=== PATIENT | female | born 1985 | race Caucasian/White ===

== ENCOUNTER 2017-01-11 10:15 | Emergency (ER) | payer MEDICARE, MEDICAID ==
--- NOTE | 2017-01-11 10:30 | UC ---
Throat Pain/Nasal Ganesh HPI - HPI Summary HPI Summary: DUPLICATE NOTE - History of Current Complaint Stated Complaint: SORE THROAT Time Seen by Provider: 01/11/17 10:27 - Allergies/Home Medications Allergies/Adverse Reactions: Allergies Allergy/AdvReac Type Severity Reaction Status Date / Time seasonal Allergy Unknown Uncoded 01/11/17 10:54 Reaction Details Home Medications: Home Medications See Pt's Med List From Pcp Office 01/11/17 [History] Review of Systems All Other Systems Reviewed And Are Negative: Yes Physical Exam Triage Information Reviewed: Yes Eye Exam: Normal ENT Exam: Normal Dental Exam: Normal Neck exam: Normal Neck: Positive: 1 Respiratory Exam: Normal Cardiovascular Exam: Normal Abdominal Exam: Normal Musculoskeletal Exam: Normal Neurological Exam: Normal Psychological Exam: Normal Skin Exam: Normal Throat Pain/Nasal Course/Dx - Differential Dx/Diagnosis Provider Diagnoses: SINUSITIS Discharge - Discharge Plan Condition: Stable Disposition: HOME Patient Education Materials: Pharyngitis (ED) Referrals: Catarina Wheat MD [Primary Care Provider] - Additional Instructions: Rapid strep negative. Most viral throat infections pass in 1-2 weeks. If she is still having significant pain by next Saturday, please see her primary care provider for a recheck. You can give 400mg ibuprofen 4 times per day as needed for pain. Children's ibuprofen has 100mg per 5mL of liquid, so you would give her 20mL of liquid. You can ask a pharmacist if you are unsure about the product you are choosing.
[2017-01-11 10:38] VITALS: BP 128/84
--- NOTE | 2017-01-11 11:00 | UC ---
Throat Pain/Nasal Ganesh HPI - HPI Summary HPI Summary: ST starting 3 days ago, is refusing all food and only taking minimal fluids. Has hx of strep infection, with similar behavior. No fever over 100F. - History of Current Complaint Chief Complaint: UCRespiratory Stated Complaint: SORE THROAT Time Seen by Provider: 01/11/17 10:27 Hx Obtained From: Patient, Family/Obiee [employer] Hx Last Menstrual Period: unknown ?: No Onset/Duration: Gradual Onset, Lasting Days Severity: Moderate Cough: None Associated Signs & Symptoms: Negative: Sinus Discomfort, Nasal Discharge, Fever , Vomiting, Rash - Allergies/Home Medications Allergies/Adverse Reactions: Allergies Allergy/AdvReac Type Severity Reaction Status Date / Time seasonal Allergy Unknown Uncoded 01/11/17 10:54 Reaction Details Home Medications: Home Medications See Pt's Med List From Pcp Office 01/11/17 [History] PMH/Surg Hx/FS Hx/Imm Hx GI/ History: Gastroesophageal Reflux Neurological History: Seizures Other Neurological History: [employer] shunt, CP - Surgical History Surgical History: Yes Surgery Procedure, Year, and Place: crainial shunts x2 - Family History Known Family History: Positive: Hypertension - Social History Alcohol Use: None Substance Use Type: None Smoking Status (MU): Never Smoked Tobacco Review of Systems Constitutional: Negative Skin: Negative Eyes: Negative ENT: Sore Throat Respiratory: Negative Cardiovascular: Negative Gastrointestinal: Negative Genitourinary: Negative Motor: Negative Neurovascular: Negative Musculoskeletal: Negative Neurological: Negative Psychological: Negative All Other Systems Reviewed And Are Negative: Yes Physical Exam Triage Information Reviewed: Yes Appearance: Pain Distress - mild, drooling, Thin Vital Signs: Initial Vital Signs Temp 99.2 F 01/11/17 10:27 Pulse 104 01/11/17 10:27 Resp 28 01/11/17 10:27 BP 128/84 01/11/17 10:27 Vital Signs Reviewed: Yes Eye Exam: Normal, Other - PERRL Eyes: Positive: Conjunctiva Clear ENT: Positive: Hearing grossly normal, Tonsillar swelling, Other: - R cerumen impaction Dental Exam: Normal Neck exam: Normal Respiratory Exam: Normal Respiratory: Positive: Normal breath sounds, No accessory muscle use Cardiovascular: Positive: No Murmur Neurological Exam: Other - baseline per caregiver Neurological: Positive: Alert Psychological Exam: Normal Skin Exam: Normal - Additional Comments Medication list reviewed by provider, no changes recommended to normal regimen. Throat Pain/Nasal Course/Dx - Differential Dx/Diagnosis Provider Diagnoses: pharyngitis Discharge - Discharge Plan Condition: Stable Disposition: HOME Patient Education Materials: Pharyngitis (ED) Additional Instructions: Rapid strep negative. Most viral throat infections pass in 1-2 weeks. If she is still having significant pain by next Saturday, please see her primary care provider for a recheck. You can give 400mg ibuprofen 4 times per day as needed for pain. Children's ibuprofen has 100mg per 5mL of liquid, so you would give her 20mL of liquid. You can ask a pharmacist if you are unsure about the product you are choosing.
[2017-01-11] MEDS ORDERED: Ibuprofen PED LIQ* 100 MG/5 ML UDC PO ONE (11:07)
== END 2017-01-11 11:24 | disposition home or self-care (01) ==
LOC: UCCORT 10:15
DX: J02.9 Acute pharyngitis, unspecified (principal); K21.9 Gastro-esophageal reflux disease without esophagitis; R56.9 Unspecified convulsions
CPT/HCPCS: 87651; 99212; G0463

== ENCOUNTER 2017-03-29 11:41 | Emergency (ER) | payer MEDICARE, MEDICAID ==
--- NOTE | 2017-03-29 11:44 | UC ---
Skin Complaint HPI - HPI Summary HPI Summary: 31 YEAR OLD FEMALE PRESENTS WITH COMPLAINS HEAD LICE. - History of Current Complaint Time Seen by Provider: 03/29/17 11:43 Stated Complaint: HEAD LICE CHECK Hx Obtained From: Patient Hx Last Menstrual Period: unknown Onset/Duration: Sudden Onset Skin Exposure Onset/Duration: Days Ago Onset Severity: Moderate Current Severity: Moderate Pain Scale Used: 0-10 Numeric - 5 - Allergy/Home Medications Allergies/Adverse Reactions: Allergies Allergy/AdvReac Type Severity Reaction Status Date / Time seasonal Allergy Unknown Uncoded 03/29/17 11:54 Reaction Details Home Medications: Home Medications levETIRAcetam TAB* [Keppra TAB*] 500 mg PO DAILY 03/29/17 [History Confirmed 12/08] Review of Systems Constitutional: Negative Skin: Other - HEAD LICE Eyes: Negative ENT: Negative Respiratory: Negative Cardiovascular: Negative Gastrointestinal: Negative Genitourinary: Negative Motor: Negative Neurovascular: Negative Musculoskeletal: Negative Neurological: Negative Psychological: Negative All Other Systems Reviewed And Are Negative: Yes PMH/Surg Hx/FS Hx/Imm Hx Previously Healthy: Yes - Surgical History Surgical History: Yes Surgery Procedure, Year, and Place: crainial shunts x2 - Family History Known Family History: Positive: Hypertension - Social History Alcohol Use: None Substance Use Type: None Smoking Status (MU): Never Smoked Tobacco Physical Exam Triage Information Reviewed: Yes Vital Signs Reviewed: Yes Eye Exam: Normal ENT Exam: Normal Dental Exam: Normal Neck exam: Normal Neck: Positive: 1 Respiratory Exam: Normal Cardiovascular Exam: Normal Abdominal Exam: Normal Musculoskeletal Exam: Normal Neurological Exam: Normal Psychological Exam: Normal Skin Exam: Normal Course/Dx - Diagnoses Provider Diagnoses: HAIR LICE Discharge - Discharge Plan Condition: Stable Disposition: HOME Prescriptions: Ivermectin (Pediculicide) [Sklice] 0.5 % EX SEE INSTRUCTIONS #2 lot Patient Education Materials: Pediculosis (ED) Referrals: Catarina Wheat MD [Medical Doctor] -
[2017-03-29 11:54] VITALS: BP 111/71
== END 2017-03-29 12:12 | disposition home or self-care (01) ==
LOC: UCCORT 11:41
DX: B85.0 Pediculosis due to Pediculus humanus capitis (principal)
CPT/HCPCS: 99212; G0463

== ENCOUNTER 2019-05-16 13:20 | Emergency (ER) | payer MEDICAID, MEDICARE ==
--- OUTSIDE RECORDS SUMMARY | 2019-05-16 14:22 | XMS REPORT | Continuity of Care Document ---
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 [phone] Problems Description No Information Available Social History Type Date Description Comments Sex Unknown Allergies, Adverse Reactions, Alerts Active Allergies Reaction Severity Comments Date seasonal 06/13/2018 Medications Active Medications SIG Qnty Indications Ordering Provider Date Albuterol Sulfate 1 four times a 375ml J20.9 Gauss, Shankar 03/09/2019 day as needed (2.5mg/3ML) 0.083% Nebulizer Augmentin 5 ml by mouth 75ml J20.9 Gauss, Shankar 03/03/2019 125-31.25mg/5ML three times a Suspension Rec day Depends Pediatric use as directed, Keli Shankar 07/09/2018 size lg/xlg Phenobarbital 5 ml in Am 6 ml Keli Shankar 20mg/5ML q hs Elixir Acetaminophen 1-2 by mouth Keli, Shankar 500mg Tablets every 6 hours as needed History Medications Xopenex 1 Every 6 HR as 36ml J20.9 Gauss, Shankar 03/03/2019 - 0.31mg/3ML Needed 03/09/2019 Nebulizer Medications Administered in Office Medication SIG Qnty Indications Ordering Provider Date B-12 Injection Shankar Carlson 08/20/2018 Injection B-12 Injection Nurse 08/20/2018 Injection B-12 Injection GaShankar leiva 08/13/2018 Injection B-12 Injection Nurse 08/13/2018 Injection B-12 Injection GaShankar leiva 08/04/2018 Injection B-12 Injection Shankar Carlson 07/30/2018 Injection B-12 Injection Nurse 07/30/2018 Injection B-12 Injection Shankar Carlson 07/23/2018 Injection Immunizations CPT Code Status Date Vaccine Lot # [id number] Given 04/03/2004 Pneumovax Polyvalent Inj Im [id number] U-Td Given 02/19/1997 Td(Adult),Unspecified U-DTaP Given 02/19/1997 DTaP,Unspecified U-HepB Given 10/30/1996 Hepatitis B,Unspecified U-HepB Given 03/17/1996 Hepatitis B,Unspecified 03820 Given 02/18/1996 MMR Virus Immunization U-HepB Given 12/19/1995 Hepatitis B,Unspecified U-Polio Given 03/01/1989 Polio,Unspecified U-DTaP Given 03/01/1989 DTaP,Unspecified 32979 Given 03/10/1988 Poliovirus Vaccine Oral (History Only) 00759 Given 08/14/1987 Poliovirus Vaccine Oral (History Only) 44363 Given 01/11/1986 Hemophilus Influenza B Vacc U-DTaP Given 08/14/1985 DTaP,Unspecified 95558 Given 07/10/1985 MMR Virus Immunization 48842 Given 04/24/1984 Poliovirus Vaccine Oral (History Only) U-DTaP Given Unknown DTaP,Unspecified Vital Signs Date Vital Result Comment 03/19/2019 10:33am BP Systolic 88 mmHg BP Diastolic 62 mmHg Heart Rate 89 /min Weight 58.00 lb O2 % BldC Oximetry 94 % 03/03/2019 11:02am BP Systolic 108 mmHg BP Diastolic 72 mmHg Heart Rate 69 /min Weight 58.50 lb O2 % BldC Oximetry 95 % Results Test Date Facility Test Result H/L Range Note .TSH+Free T4 02/28/2019 [facility] TSH 1.06 mcIU/mL Normal 0.34 -5.60 ([facility] ([facility]) [place] [address] Stim Xxqn) [phone] Free T4 (Free Thyroxine) 0.93 ng/dL Normal 0.61-1.12 Laboratory test 02/28/2019 [facility] Vitamin B12 1183 pg/mL High 180-914 [address] [place], [place] [id number] [phone] Folic Acid (Folate) > 20.00 ng/mL >3.99 Iron & Iron Binding 02/28/2019 [facility] Iron 171 g/dL Normal 50-212 [address] [place] [address] [phone] Unsaturated Iron Binding 61 g/dL Total Iron Binding Capacity 232 g/dL Low 250-450 Transferrin 166 mg/dL Low 203-362 % Iron Saturation 74 % High 15-55 Laboratory test 02/28/2019 [facility] Ferritin 68.4 ng/mL Normal 11-307 finding [address] [place] [address] [phone] Erythropoietin 19.9 mIU/mL Abnormal 2.6 - 18.5 2 CBC Auto 02/28/2019 [facility] White Blood 4.4 10^3/uL Normal 3.5-10.8 Diff [address] [facility] [place] [address] [phone] Red Blood Count 4.59 10^6/uL Normal 3.70-4.87 Hemoglobin 16.4 g/dL High 12.0-16.0 Hematocrit 47 % Normal 35-47 Mean Corpuscular Volume 103 fL High 80-97 Mean Corpuscular Hemoglobin 36 pg High 27-31 Mean Corpuscular HGB Conc 35 g/dL Normal 31-36 Red Cell Distribution Width 13 % Normal 10-15 Platelet Count 350 10^3/uL Normal 150-450 Mean Platelet Volume 7.6 fL Normal 7.4-10.4 Abs Neutrophils 3.0 10^3/uL Normal 1.5-7.7 Abs Lymphocytes 1.1 10^3/uL Normal 1.0-4.8 Abs Monocytes 0.2 10^3/uL Normal 0-0.8 Abs Eosinophils 0.1 10^3/uL Normal 0-0.6 Abs Basophils 0.0 10^3/uL Normal 0-0.2 Abs Nucleated RBC 0.0 10^3/uL Granulocyte % 67.4 % Lymphocyte % 24.7 % Monocyte % 5.0 % Eosinophil % 2.0 % Basophil % 0.9 % Nucleated Red Blood Cells % 0.1 Comp Metabolic 02/28/2019 [facility] Sodium 139 mmol/L Normal 135-145 [address] [place] [address] [phone] Potassium 3.9 mmol/L Normal 3.5-5.0 Chloride 100 mmol/L Low 101-111 Co2 Carbon Dioxide 30 mmol/L Normal 22-32 Anion Gap 9 mmol/L Normal 2-11 Glucose 113 mg/dL High 70-100 Blood Urea Nitrogen 12 mg/dL Normal 6-24 Creatinine 0.41 mg/dL Low 0.51-0.95 BUN/Creatinine Ratio 29.3 High 8-20 Calcium 9.7 mg/dL Normal 8.6-10.3 Total Protein 7.7 g/dL Normal 6.4-8.9 Albumin 4.8 g/dL Normal 3.2-5.2 Globulin 2.9 g/dL Normal 2-4 Albumin/Globulin Ratio 1.7 Normal 1-3 Total Bilirubin 0.60 mg/dL Normal 0.2-1.0 Alkaline Phosphatase 81 U/L Normal 34-104 Alt 15 U/L Normal 7-52 Ast 16 U/L Normal 13-39 Egfr Non- 176.5 >60 Egfr 213.6 >60 3 Laboratory test 02/28/2019 [facility] Phenobarbital 20.6 g/mL Normal 17-34 4 finding [address] [place] [address] [phone] Normal Range 180 to 914 Indeterminate Range 145 to 180 Deficient Range <145 2 Test Performed by: [place] [address] Oncology Coordinator: Abhay Ku M.D. Ph.D.; [facility]# [id number] 3 Because ethnic data is not always readily available, this report includes an eGFR for both -Americans and non- Americans. The National Kidney Disease Education Program (NKDEP) does not endorse the use of the MDRD equation for patients that are not between the ages of 18 and 70, are , have extremes of body size, muscle mass, or nutritional status, or are non- or non-. According to the National Kidney Foundation, irrespective of diagnosis, the stage of the disease is based on the level of kidney function: Stage Description GFR(mL/min/1.73 m(2)) 1 Kidney damage with normal or decreased GFR 90 2 Kidney damage with mild decrease in GFR 60-89 3 Moderate decrease in GFR 30-59 4 Severe decrease in GFR 15-29 5 Kidney failure <15 (or dialysis) 4 Draw prior to AM dose of medication Copy Result to: SHANKAR CARLSON ([id number]) Procedures Description No Information Available Medical Devices Description No Information Available Encounters Type Date Location Provider Dx Diagnosis Office Visit 03/03/2019 11:00a Main Office Shankar Carlson D50.9 Iron deficiency anemia, unspecified 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 Severe intellectual disabilities 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 K44.0 Diaphragmatic hernia with obstruction, without gangrene G91.9 Hydrocephalus, unspecified G40.89 Other seizures D51.3 Other dietary vitamin B12 deficiency anemia G82.50 Quadriplegia, unspecified 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 Profound intellectual disabilities J20.9 Acute bronchitis, unspecified Office Visit 12/11/2018 10:45a Main Office Shankar Carlson 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 Severe intellectual disabilities D50.9 Iron deficiency anemia, unspecified 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89 Other seizures D51.3 Other dietary vitamin B12 deficiency anemia G82.50 Quadriplegia, unspecified D64.9 Anemia, unspecified 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 Assessments Date Code Description Provider 03/03/2019 D50.9 Iron deficiency anemia, unspecified Shankar Carlson 03/03/2019 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 Severe intellectual disabilities Shankar Carlson 03/03/2019 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 Shankar Carlson 03/03/2019 K44.0 Diaphragmatic hernia with obstruction Shankar Carlson 03/03/2019 G91.9 Hydrocephalus, unspecified Shankar Carlson 03/03/2019 G40.89 Other seizures Shankar Carlson 03/03/2019 D51.3 Other dietary vitamin B12 deficiency anemia Gauss, [facility] [place] 03/03/2019 G82.50 Quadriplegia, unspecified Gauss, [facility] [place] 03/03/2019 F73 Profound intellectual disabilities Gauss, [facility] [place] 03/03/2019 J20.9 Acute bronchitis, unspecified Gauss, [facility] [place] 12/11/2018 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 Severe intellectual disabilities Gauss, [facility] [place] 12/11/2018 D50.9 Iron deficiency anemia, unspecified Gauss, [facility] [place] 12/11/2018 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 Gauss, [facility] [place] 12/11/2018 K44.0 Diaphragmatic hernia with obstruction Gauss, [facility] [place] 12/11/2018 G91.9 Hydrocephalus, unspecified Gauss, [facility] [place] 12/11/2018 G40.89 Other seizures Gauss, [facility] [place] 12/11/2018 D51.3 Other dietary vitamin B12 deficiency anemia Gauss, [facility] [place] 12/11/2018 G82.50 Quadriplegia, unspecified Gauss, [facility] [place] 12/11/2018 D64.9 Anemia, unspecified Gauss, [facility] [place] 12/11/2018 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8 Other cerebral palsy Gauss, [facility] [place] 11/25/2018 G40.89 Other seizures Gauss, [facility] [place] 11/25/2018 D51.3 Other dietary vitamin B12 deficiency anemia Gauss, [facility] [place] 11/25/2018 G82.50 Quadriplegia, unspecified Gauss, [facility] [place] 11/25/2018 D64.9 Anemia, unspecified Gauss, [facility] [place] 11/25/2018 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 Shankar Carlson Plan of Treatment Future Appointment(s):05/25/2019 8:00 am - Nurse at Main [id number]/01/2019 10: 30 am - Shankar Carlson at Main Jcjqow8512/11/2018 - Shankar CarlsonF72 Severe intellectual explbxbtchcwZ79.9 Iron deficiency anemia, bzqdlcgfkiaO76.5 Congenital deformity of hztzvS75.0 Diaphragmatic hernia with fxofurytvwhC19.9 Hydrocephalus, neuxsbfadjyU10.89 Other jgowikvbZ79.3 Other dietary vitamin B12 deficiency dyemedQ76.50 Quadriplegia, xivzmaxpbepJ41.9 Anemia, ajqijvubmtcZ26.63 Congenital uvjvtmlgxM53 Profound intellectual disabilities Functional Status Description No Information Available Mental Status Description No Information Available Referrals Refer to Reason for Referral Status Appt Date [facility] [address] [place], [place] [id number] [phone]
--- OUTSIDE RECORDS SUMMARY | 2019-05-16 14:22 | XMS REPORT | Continuity of Care Document ---
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 Problems Description No Information Available Social History Type Date Description Comments Sex Unknown Allergies, Adverse Reactions, Alerts Active Allergies Reaction Severity Comments Date seasonal 06/13/2018 Medications Active Medications SIG Qnty Indications Ordering Provider Date Centrum Multigummies Chew 2 Gummies Shankar Carlson 04/22/2019 Twice Daily Chewtabs Acetaminophen Infants Take 10 MLS By Shankar Carlson 04/22/2019 Mouth as Needed 160mg/5ML Suspension For Pain Or Fever >100.5 Albuterol Sulfate 1 four times a 375ml J20.9 GaShankar leiva 03/09/2019 day as needed (2.5mg/3ML) 0.083% Nebulizer Depends Pediatric use as directed, Shankar Carlson 07/09/2018 size lg/xlg Phenobarbital 5 ml in Am 6 ml Shankar Carlson 20mg/5ML q hs Elixir History Medications Augmentin 5 ml by mouth 75ml J20.9 Gacali Shankar 03/03/2019 - 125-31.25mg/5ML three times a 04/22/2019 Suspension Rec day Xopenex 1 Every 6 HR as 36ml J20.9 Shankar Carlson 03/03/2019 - 0.31mg/3ML Nebulizer Needed 03/09/2019 Medications Administered in Office Medication SIG Qnty Indications Ordering Provider Date B-12 Injection Shankar Carlson 08/20/2018 Injection B-12 Injection Nurse 08/20/2018 Injection B-12 Injection Gauss, Shankar 08/13/2018 Injection B-12 Injection Nurse 08/13/2018 Injection B-12 Injection Gauss, Shankar 08/04/2018 Injection B-12 Injection Gauss, Shankar 07/30/2018 Injection B-12 Injection Nurse 07/30/2018 Injection B-12 Injection Gauss, Shankar 07/23/2018 Injection Immunizations CPT Code Status Date Vaccine Lot # [id number] Given 04/03/2004 Pneumovax Polyvalent Inj Im [id number] U-Td Given 02/19/1997 Td(Adult),Unspecified U-DTaP Given 02/19/1997 DTaP,Unspecified U-HepB Given 10/30/1996 Hepatitis B,Unspecified U-HepB Given 03/17/1996 Hepatitis B,Unspecified 55369 Given 02/18/1996 MMR Virus Immunization U-HepB Given 12/19/1995 Hepatitis B,Unspecified U-Polio Given 03/01/1989 Polio,Unspecified U-DTaP Given 03/01/1989 DTaP,Unspecified 17739 Given 03/10/1988 Poliovirus Vaccine Oral (History Only) 03396 Given 08/14/1987 Poliovirus Vaccine Oral (History Only) 22705 Given 01/11/1986 Hemophilus Influenza B Vacc U-DTaP Given 08/14/1985 DTaP,Unspecified 71123 Given 07/10/1985 MMR Virus Immunization 04138 Given 04/24/1984 Poliovirus Vaccine Oral (History Only) U-DTaP Given Unknown DTaP,Unspecified Vital Signs Date Vital Result Comment 04/22/2019 1:03pm BP Systolic 108 mmHg BP Diastolic 60 mmHg Heart Rate 75 /min Respiratory Rate 26 /min O2 % BldC Oximetry 95 % 03/19/2019 10:33am BP Systolic 88 mmHg BP Diastolic 62 mmHg Heart Rate 89 /min Weight 58.00 lb O2 % BldC Oximetry 94 % Results Test Acquired Date Facility Test Result H/L Range Note .TSH+Free 02/28/2019 [place] [facility] TSH 1.06 mcIU/mL Normal 0.34- 5.60 T4 [address] (Thyroid [place] [address] Stim Horm) [facility] [phone] Free T4 (Free Thyroxine) 0.93 ng/dL Normal 0.61-1.12 Laboratory test 02/28/2019 [facility] Vitamin B12 1183 pg/mL High 180-914 1 finding [address] [place] [address] [phone] Folic Acid (Folate) > 20.00 ng/mL >3.99 Iron & Iron Binding 02/28/2019 [facility] Iron 171 g/dL Normal 50-212 Capacity [facility] [place] [address] [phone] Unsaturated Iron Binding 61 g/dL Total Iron Binding Capacity 232 g/dL Low 250-450 Transferrin 166 mg/dL Low 203-362 % Iron Saturation 74 % High 15-55 Laboratory test 02/28/2019 [facility] Ferritin 68.4 ng/mL Normal 11-307 finding [facility] [place] [address] [phone] Erythropoietin 19.9 mIU/mL Abnormal 2.6 - 18.5 2 CBC Auto 02/28/2019 [facility] White Blood 4.4 10^3/uL Normal 3.5-10.8 Diff [address] [facility] [address] [phone] Red Blood Count 4.59 10^6/uL Normal 3.70-4.87 [...] Blood Cells % 0.1 Comp Metabolic 02/28/2019 [facility] Sodium 139 mmol/L Normal 135-145 Panel [address] [place] [address] [phone] Potassium 3.9 mmol/L Normal 3.5-5.0 Chloride 100 [...] Egfr 213.6 >60 3 Laboratory test 02/28/2019 [facility] Phenobarbital 20.6 g/mL Normal 17-34 4 finding [address] [place] [address] [phone] Normal Range 180 to 914 Indeterminate Range 145 to 180 Deficient Range <145 2 Test Performed by: [place] [address] Line Operator: Abhay Ku M.D. Ph.D.; IA# [id number] 3 Because ethnic data is not always [...] of medication Copy Result to: SHANKAR CARLSON ([id number]) Procedures Description No Information Available Medical Devices Description No Information Available Encounters Type Date Location Provider Dx Diagnosis Office Visit 03/19/2019 10:15a Main Office Shankar Carlson J44.9 Chronic obstructive pulmonary disease, unspecified Z01.810 Encounter for preprocedural cardiovascular examination E11.9 Type 2 diabetes mellitus without complications D50.9 Iron deficiency anemia, unspecified I73.9 Peripheral vascular disease, unspecified F72 Severe intellectual disabilities I48.0 Paroxysmal atrial fibrillation 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 03/19/2019 Z01.810 Encounter for preprocedural cardiovascular examination [facility] 03/19/2019 E11.9 Type 2 diabetes mellitus without complications [facility], [facility] 03/19/2019 D50.9 Iron deficiency anemia, unspecified [facility], [facility] 03/19/2019 I73.9 Peripheral vascular disease, 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 03/19/2019 G91.9 Hydrocephalus, unspecified [facility], [facility] 03/19/2019 D51.3 Other dietary vitamin B12 deficiency anemia [facility] 03/19/2019 G82.50 Quadriplegia, unspecified [facility], 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 03/03/2019 F72 Severe intellectual disabilities [facility], 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 03/03/2019 K44.0 Diaphragmatic hernia with obstruction [facility], [facility] 03/03/2019 G91.9 Hydrocephalus, unspecified [facility], [facility] 03/03/2019 G40.89 Other seizures [facility], [facility] 03/03/2019 D51.3 Other dietary vitamin B12 deficiency anemia [facility] 03/03/2019 G82.50 Quadriplegia, unspecified [facility], [facility] 03/03/2019 F73 Profound intellectual disabilities [facility], [facility] 03/03/2019 J20.9 Acute bronchitis, unspecified [facility], [facility] 12/11/2018 F72 Severe intellectual disabilities [facility], [facility] 12/11/2018 D50.9 Iron deficiency anemia, unspecified [facility], 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 12/11/2018 K44.0 Diaphragmatic hernia with obstruction [facility], [facility] 12/11/2018 G91.9 Hydrocephalus, unspecified [facility], [facility] 12/11/2018 G40.89 Other seizures Gauss, [facility] 12/11/2018 D51.3 Other dietary vitamin B12 deficiency anemia Gauss, [facility] 12/11/2018 G82.50 Quadriplegia, unspecified [facility], [facility] 12/11/2018 D64.9 Anemia, unspecified [facility], 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 11/25/2018 F72 Severe intellectual disabilities [facility], [facility] 11/25/2018 D50.9 Iron deficiency anemia, unspecified [facility], 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 11/25/2018 K44.0 Diaphragmatic hernia with obstruction [facility], [facility] 11/25/2018 G91.9 Hydrocephalus, unspecified [facility], [facility] 11/25/2018 G80.8 Other cerebral palsy [facility], [facility] 11/25/2018 G40.89 Other seizures [facility], [facility] 11/25/2018 D51.3 Other dietary vitamin B12 deficiency anemia [facility], [facility] 11/25/2018 G82.50 Quadriplegia, unspecified [facility], [facility] 11/25/2018 D64.9 Anemia, unspecified [facility], 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 Shankar Carlson Plan of Treatment Future Appointment(s):05/25/2019 8:00 am - Nurse at Main Tdocqs3206/01/2019 10: 30 am - Shankar Carlson at Main Fzeiey2712/11/2018 - [facility] leivaF72 Severe intellectual fmkzyhpuzhepN83.9 Iron deficiency anemia, encxyiwcujsI23.5 Congenital deformity of nunaqA40.0 Diaphragmatic hernia with stwyqksrxjuD08.9 Hydrocephalus, tvebtwutheoT74.89 Other ohwvgfgvO38.3 Other dietary vitamin B12 deficiency yhkgtcK46.50 Quadriplegia, bongnaraowqZ65.9 Anemia, bcxjjpjlibvS30.63 Congenital hyzffjxceY07 Profound intellectual disabilities Functional Status Description No Information Available Mental Status Description No Information Available Referrals Refer to Dr Reason for Referral Status Appt Date [facility] [address] [place] [address] [phone]
--- OUTSIDE RECORDS SUMMARY | 2019-05-16 14:22 | XMS REPORT | Continuity of Care Document ---
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 [phone] Problems Description No Information Available Social History [...] Injection GaShankar leiva 08/04/2018 Injection B-12 Injection [facility] leival 07/30/2018 Injection B-12 Injection Nurse 07/30/2018 Injection B-12 Injection Shankar Carlson 07/23/2018 Injection Immunizations CPT Code Status Date Vaccine Lot # [id number] Given 04/03/2004 Pneumovax Polyvalent Inj Im [id number] U-Td Given 02/19/1997 Td(Adult),Unspecified U-DTaP Given 02/19/1997 DTaP,Unspecified U-HepB Given 10/30/1996 Hepatitis B,Unspecified U-HepB Given 03/17/1996 Hepatitis B,Unspecified 56584 Given 02/18/1996 MMR Virus Immunization U-HepB Given 12/19/1995 Hepatitis B,Unspecified U-Polio Given 03/01/1989 Polio,Unspecified U-DTaP Given 03/01/1989 DTaP,Unspecified 23464 Given 03/10/1988 Poliovirus Vaccine Oral (History Only) 00174 Given 08/14/1987 Poliovirus Vaccine Oral (History Only) 39278 Given 01/11/1986 Hemophilus Influenza B Vacc U-DTaP Given 08/14/1985 DTaP,Unspecified 76346 Given 07/10/1985 MMR Virus Immunization 39121 Given 04/24/1984 Poliovirus Vaccine Oral (History Only) [...] Result H/L Range Note .TSH+Free T4 02/28/2019 [facility] TSH 1.06 mcIU/mL Normal 0.34 -5.60 ([place] & [facility] (Thyroid [facility]) [place] [address] Stim Nuwj) [phone] Free T4 (Free Thyroxine) 0.93 ng/dL Normal 0.61-1.12 Laboratory test 02/28/2019 [facility] Vitamin B12 1183 pg/mL High 180-914 [address] [place], [place] [address] [phone] Folic Acid (Folate) > 20.00 ng/mL >3.99 Iron & Iron Binding 02/28/2019 [facility] Iron 171 g/dL Normal 50-212 Capacity [address] [place] [address] [phone] Unsaturated Iron Binding 61 g/dL Total Iron Binding Capacity 232 g/dL Low 250-450 Transferrin 166 mg/dL Low 203-362 % Iron Saturation 74 % High 15-55 Laboratory test 02/28/2019 [facility] Ferritin 68.4 ng/mL Normal 11-307 finding [address] [place] [address] [phone] Erythropoietin 19.9 mIU/mL Abnormal 2.6 - 18.5 2 CBC Auto 02/28/2019 [facility] White Blood 4.4 10^3/uL Normal 3.5-10.8 Diff [address] [facility] [place] [address] [phone] Red Blood Count 4.59 10^6/uL Normal 3.70-4.87 [...] Blood Cells % 0.1 Comp Metabolic 02/28/2019 [facility] Sodium 139 mmol/L Normal 135-145 Panel [address] [place] [address] [phone] Potassium 3.9 mmol/L Normal 3.5-5.0 Chloride 100 [...] Egfr 213.6 >60 3 Laboratory test 02/28/2019 [facility] Phenobarbital 20.6 g/mL Normal 17-34 4 finding [address] [place] [address] [phone] Normal Range 180 to 914 Indeterminate Range 145 to 180 Deficient Range <145 2 Test Performed by: [place] [address] Ship Loader: Abhay Ku M.D. Ph.D.; [facility]# [id number] 3 Because ethnic data is not always [...] of medication Copy Result to: SHANKAR CARLSON ([id number]) Procedures Description No Information Available Medical Devices Description No Information Available Encounters Type Date Location Provider Dx Diagnosis Office Visit 03/19/2019 Main Office Shankar Carlson Z01.810 Encounter for 10:15a preprocedural cardiovascular examination D50.9 Iron deficiency anemia, unspecified F72 Severe [...] blindness Assessments Date Code Description Provider 03/19/2019 [place]01.810 Encounter for preprocedural cardiovascular examination Gauss, [facility] 03/19/2019 D50.9 Iron deficiency anemia, unspecified [facility], [facility] 03/19/2019 F72 Severe intellectual disabilities Gauss, [facility] 03/19/2019 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 Gauss, [facility] 03/19/2019 K44.0 Diaphragmatic hernia with obstruction [facility], [facility] 03/19/2019 G91.9 Hydrocephalus, unspecified Gauss, [facility] 03/19/2019 D51.3 Other dietary vitamin B12 deficiency anemia Gauss, [facility] 03/19/2019 G82.50 Quadriplegia, unspecified [facility], [facility] 03/19/2019 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 Profound intellectual disabilities Gauss, [facility] 03/19/2019 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 Gauss, [facility] 03/03/2019 D50.9 Iron deficiency anemia, unspecified Gauss, [facility] 03/03/2019 F72 Severe intellectual disabilities Gauss, [facility] 03/03/2019 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 Gauss, [facility] 03/03/2019 K44.0 Diaphragmatic hernia with obstruction Gauss, [facility] 03/03/2019 G91.9 Hydrocephalus, unspecified Gauss, [facility] 03/03/2019 G40.89 Other seizures Gauss, [facility] 03/03/2019 D51.3 Other dietary vitamin B12 deficiency anemia Gauss, [facility] 03/03/2019 G82.50 Quadriplegia, unspecified Gauss, [facility] 03/03/2019 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 Profound intellectual disabilities Gauss, [facility] 03/03/2019 J20.9 Acute bronchitis, unspecified Gauss, [facility] 12/11/2018 F72 Severe intellectual disabilities Gauss, [facility] 12/11/2018 D50.9 Iron deficiency anemia, unspecified Gauss, [facility] 12/11/2018 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 Gauss, [facility] 12/11/2018 K44.0 Diaphragmatic hernia with obstruction [facility], [facility] 12/11/2018 G91.9 Hydrocephalus, unspecified [facility], [facility] 12/11/2018 G40.89 Other seizures Gauss, [facility] 12/11/2018 D51.3 Other dietary vitamin B12 deficiency anemia Gauss, [facility] 12/11/2018 G82.50 Quadriplegia, unspecified Gauss, Shankar 12/11/2018 D64.9 Anemia, unspecified [facility], [facility] 12/11/2018 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 Gauss, [facility] 12/11/2018 F73 Profound intellectual disabilities Gauss, [facility] 11/25/2018 F72 Severe intellectual disabilities Gauss, [facility] 11/25/2018 D50.9 Iron deficiency anemia, unspecified [facility], [facility] 11/25/2018 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 Gauss, [facility] 11/25/2018 K44.0 Diaphragmatic hernia with obstruction [facility], [facility] 11/25/2018 G91.9 Hydrocephalus, unspecified [facility], [facility] 11/25/2018 G80.8 Other cerebral palsy [facility], [facility] 11/25/2018 G40.89 Other seizures [facility], [facility] 11/25/2018 D51.3 Other dietary vitamin B12 deficiency anemia [facility], [facility] 11/25/2018 G82.50 Quadriplegia, unspecified [facility], [facility] 11/25/2018 D64.9 Anemia, unspecified [facility], [facility] 11/25/2018 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 Shankar Carlson Plan of Treatment Future Appointment(s):05/25/2019 8:00 am - Nurse at Main Fsyulo8806/01/2019 10: 30 am - Shankar Carlson at Main Kcvrzs8803/19/2019 - Shankar CarlsonZ01.810 Encounter for preprocedural cardiovascular bjzgztjlxvsN95.9 Iron deficiency anemia, ijeqfsjvjdrE91 Severe intellectual krvjartoygqmD43.5 Congenital deformity of eszumB98.0 Diaphragmatic hernia with btppwuyayexR10.9 Hydrocephalus, lvnskojsyavP57.3 Other dietary vitamin B12 deficiency yfxazcK76.50 Quadriplegia , lqrfxyqzqwzC66 Profound intellectual hxfdbnxwfqfoA47.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 Functional Status Description No Information Available Mental Status Description No Information Available Referrals Refer to Reason for Referral Status Appt Date [facility] [address] [place] [address] [phone]
--- OUTSIDE RECORDS SUMMARY | 2019-05-16 14:22 | XMS REPORT | Continuity of Care Document ---
:1985 External Reference #:[id number] Author Name Shankar Carlson (transmitted by agent of provider Jasmyne Crowley) Address [address] [place] [address] Care Team Providers Name Role Phone Shankar Carlson MD - Internal Medicine Care Team Information Nurse Ldr Problems Description No Information Available Social History [...] CPT Code Status Date Vaccine Lot # [id number] Given 04/03/2004 Pneumovax Polyvalent Inj Im [id number] U-Td Given 02/19/1997 Td(Adult),Unspecified U-DTaP Given 02/19/1997 DTaP,Unspecified U-HepB Given 10/30/1996 Hepatitis B,Unspecified U-HepB Given 03/17/1996 Hepatitis B,Unspecified 72059 Given 02/18/1996 MMR Virus Immunization U-HepB Given 12/19/1995 Hepatitis B,Unspecified U-Polio Given 03/01/1989 Polio,Unspecified U-DTaP Given 03/01/1989 DTaP,Unspecified 61151 Given 03/10/1988 Poliovirus Vaccine Oral (History Only) 48280 Given 08/14/1987 Poliovirus Vaccine Oral (History Only) 17829 Given 01/11/1986 Hemophilus Influenza B Vacc U-DTaP Given 08/14/1985 DTaP,Unspecified 31685 Given 07/10/1985 MMR Virus Immunization 09931 Given 04/24/1984 Poliovirus Vaccine Oral (History Only) [...] Result H/L Range Note .TSH+Free T4 02/28/2019 [facility] TSH 1.06 mcIU/mL Normal 0.34 -5.60 ([facility] (Thyroid [facility]) [place] [address] Stim [facility]) [phone] Free T4 (Free Thyroxine) 0.93 ng/dL Normal 0.61-1.12 Laboratory test 02/28/2019 [facility] Vitamin B12 1183 pg/mL High 180-914 [address] [place], [place] [id number] [phone] Folic Acid (Folate) > 20.00 ng/mL >3.99 Iron & Iron Binding 02/28/2019 [facility] Iron 171 g/dL Normal 50-212 Capacity [address] [place] [address] [phone] Unsaturated Iron Binding 61 g/dL Total Iron Binding Capacity 232 g/dL Low 250-450 Transferrin 166 mg/dL Low 203-362 % Iron Saturation 74 % High 15-55 Laboratory test 02/28/2019 [facility] Ferritin 68.4 ng/mL Normal 11-307 finding [address] [place] [address] [phone] Erythropoietin 19.9 mIU/mL Abnormal 2.6 - 18.5 2 CBC Auto 02/28/2019 [facility] White Blood 4.4 10^3/uL Normal 3.5-10.8 Diff [address] [facility] [place] [address] [phone] Red Blood Count 4.59 10^6/uL Normal 3.70-4.87 [...] Blood Cells % 0.1 Comp Metabolic 02/28/2019 [facility] Sodium 139 mmol/L Normal 135-145 Panel [address] [place] [address] [phone] Potassium 3.9 mmol/L Normal 3.5-5.0 Chloride 100 [...] Egfr 213.6 >60 3 Laboratory test 02/28/2019 [facility] Phenobarbital 20.6 g/mL Normal 17-34 4 finding [address] [place] [address] [phone] Normal Range 180 to 914 Indeterminate Range 145 to 180 Deficient Range <145 2 Test Performed by: [place] [address] Geological Science Teacher: Abhay Ku M.D. 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 [facility], [facility] 03/19/2019 K44.0 Diaphragmatic hernia with obstruction [facility], [facility] 03/19/2019 G91.9 Hydrocephalus, unspecified Gauss, [facility] 03/19/2019 D51.3 Other dietary vitamin B12 deficiency anemia [facility], [facility] 03/19/2019 G82.50 Quadriplegia, unspecified [facility], [facility] 03/19/2019 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 Profound intellectual disabilities [facility], [facility] 03/19/2019 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 [facility], [facility] 03/03/2019 D50.9 Iron deficiency anemia, unspecified Gauss, [facility] 03/03/2019 F72 Severe intellectual disabilities Gauss, [facility] 03/03/2019 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 Gauss, [facility] 03/03/2019 K44.0 Diaphragmatic hernia with obstruction [facility], [facility] 03/03/2019 G91.9 Hydrocephalus, unspecified Gauss, [facility] 03/03/2019 G40.89 Other seizures Gauss, [facility] 03/03/2019 D51.3 Other dietary vitamin B12 deficiency anemia [facility], [facility] 03/03/2019 G82.50 Quadriplegia, unspecified Gauss, [facility] 03/03/2019 F73 Profound intellectual disabilities Gauss, [facility] 03/03/2019 J20.9 Acute bronchitis, unspecified Gauss, [facility] 12/11/2018 F72 Severe intellectual disabilities Gauss, [facility] 12/11/2018 D50.9 Iron deficiency anemia, unspecified Gauss, [facility] 12/11/2018 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 Gauss, [facility] 12/11/2018 K44.0 Diaphragmatic hernia with obstruction Gauss, [facility] 12/11/2018 G91.9 Hydrocephalus, unspecified Gauss, [facility] 12/11/2018 G40.89 Other seizures Gauss, [facility] 12/11/2018 D51.3 Other dietary vitamin B12 deficiency anemia Gauss, [facility] 12/11/2018 G82.50 Quadriplegia, unspecified Gauss, Shankar 12/11/2018 D64.9 Anemia, unspecified Gauss, [facility] 12/11/2018 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 Gacali, [facility] 12/11/2018 F73 Profound intellectual disabilities Gauss, [facility] 11/25/2018 F72 Severe intellectual disabilities Gauss, [facility] 11/25/2018 D50.9 Iron deficiency anemia, unspecified Gauss, Shankar 11/25/2018 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 Gauss, [facility] 11/25/2018 K44.0 Diaphragmatic hernia with obstruction [facility], [facility] 11/25/2018 G91.9 Hydrocephalus, unspecified Gauss, [facility] 11/25/2018 G80.8 Other cerebral palsy Rafaeluss, [facility] 11/25/2018 G40.89 Other seizures Rafaeluss, [facility] 11/25/2018 D51.3 Other dietary vitamin B12 deficiency anemia Keli, [facility] 11/25/2018 G82.50 Quadriplegia, unspecified [facility], [facility] 11/25/2018 D64.9 Anemia, unspecified [facility], [facility] 11/25/2018 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 Shankar Carlson Plan of Treatment Future Appointment(s):05/25/2019 8:00 am - Nurse at Main Gzrvbu1806/01/2019 10: 30 am - Shankar Carlson at Main Jjcwhi8012/11/2018 - Power CarlsonF72 Severe intellectual wbtdnwbbzvfqF39.9 Iron deficiency anemia, azgalyovnfgK96.5 Congenital deformity of vwvodR87.0 Diaphragmatic hernia with uqkghsinhhhP18.9 Hydrocephalus, xahljyhxdmrD06.89 Other inarqkinZ17.3 Other dietary vitamin B12 deficiency bccfntY46.50 Quadriplegia, fdjzpggvdfgG86.9 Anemia, scdlpsmwhcfQ25.63 Congenital bvwabbibvC51 Profound intellectual disabilities Functional Status Description No Information Available Mental Status Description No Information Available Referrals Refer to Reason for Referral Status Appt Date [facility] [address] [place] [address] [phone]
--- OUTSIDE RECORDS SUMMARY | 2019-05-16 14:22 | XMS REPORT | Continuity of Care Document ---
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 Problems Description No Information Available Social History [...] Augmentin 5 ml by mouth 75ml J20.9 GaShankar leiva 03/03/2019 - 125-31.25mg/5ML three times a 04/22/2019 [...] CPT Code Status Date Vaccine Lot # [id number] Given 04/03/2004 Pneumovax Polyvalent Inj Im [id number] U-Td Given 02/19/1997 Td(Adult),Unspecified U-DTaP Given 02/19/1997 DTaP,Unspecified U-HepB Given 10/30/1996 Hepatitis B,Unspecified U-HepB Given 03/17/1996 Hepatitis B,Unspecified 42534 Given 02/18/1996 MMR Virus Immunization U-HepB Given 12/19/1995 Hepatitis B,Unspecified U-Polio Given 03/01/1989 Polio,Unspecified U-DTaP Given 03/01/1989 DTaP,Unspecified 20309 Given 03/10/1988 Poliovirus Vaccine Oral (History Only) 10569 Given 08/14/1987 Poliovirus Vaccine Oral (History Only) 51530 Given 01/11/1986 Hemophilus Influenza B Vacc U-DTaP Given 08/14/1985 DTaP,Unspecified 87030 Given 07/10/1985 MMR Virus Immunization 07095 Given 04/24/1984 Poliovirus Vaccine Oral (History Only) [...] Test Result H/L Range Note .TSH+Free 02/28/2019 [facility] TSH 1.06 mcIU/mL Normal 0.34- 5.60 T4 [address] (Thyroid [place] [address] [place]) [facility] [place] [phone] Free T4 (Free Thyroxine) 0.93 ng/dL Normal 0.61-1.12 Laboratory test 02/28/2019 [facility] B12 1183 pg/mL High 180-914 1 finding [address] [place] [address] [phone] Folic Acid (Folate) > 20.00 ng/mL >3.99 Iron & Iron Binding 02/28/2019 [facility] Iron 171 g/dL Normal 50-212 Capacity [facility] [place] [address] [phone] Unsaturated Iron Binding 61 g/dL Total Iron Binding Capacity 232 g/dL Low 250-450 Transferrin 166 mg/dL Low 203-362 % Iron Saturation 74 % High 15-55 Laboratory test 02/28/2019 [facility] Ferritin 68.4 ng/mL Normal 11-307 finding [facility] [place] [address] [phone] Erythropoietin 19.9 mIU/mL Abnormal 2.6 - 18.5 2 CBC Auto 02/28/2019 [facility] White Blood 4.4 10^3/uL Normal 3.5-10.8 Diff 1129 [employer] [facility] [place] [address] [phone] Red Blood Count 4.59 10^6/uL Normal 3.70-4.87 [...] Blood Cells % 0.1 Comp Metabolic 02/28/2019 [facility] Sodium 139 mmol/L Normal 135-145 Panel [address] [place] [address] [phone] Potassium 3.9 mmol/L Normal 3.5-5.0 Chloride 100 [...] Egfr 213.6 >60 3 Laboratory test 02/28/2019 [facility] Phenobarbital 20.6 g/mL Normal 17-34 4 finding [address] [place] [address] [phone] 1 Normal Range 180 to 914 Indeterminate Range 145 to 180 Deficient Range <145 2 Test Performed by: [place] [address] Street Roller Engineer: Abhay Ku M.D. Ph.D.; [place]# [id number] 3 Because ethnic data is not always [...] of medication Copy Result to: SHANKAR CARLSON ([id number]) Procedures Description No Information Available Medical Devices [...] 03/19/2019 J44.9 Chronic obstructive pulmonary disease, [facility] 03/19/2019 Z01.810 Encounter for preprocedural cardiovascular examination [facility] 03/19/2019 E11.9 Type 2 diabetes mellitus without complications [facility], [facility] 03/19/2019 D50.9 Iron deficiency anemia, unspecified [facility], [facility] 03/19/2019 I73.9 Peripheral vascular disease, [facility] 03/19/2019 F[address] [facility] 03/19/2019 I48.[address] 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 03/19/2019 K44.0 Diaphragmatic hernia with obstruction [facility], [facility] 03/19/2019 G91.9 Hydrocephalus, unspecified Gauss, [facility] 03/19/2019 D51.3 Other dietary vitamin B12 deficiency anemia [facility] 03/19/2019 G82.50 Quadriplegia, unspecified Gauss, [facility] 03/19/2019 F73 Profound intellectual disabilities [facility] 03/19/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 Gauss, [facility] 12/11/2018 K44.0 Diaphragmatic hernia with obstruction [facility], [facility] 12/11/2018 G91.9 Hydrocephalus, unspecified Gauss, [facility] 12/11/2018 G40.89 Other seizures [facility], [facility] 12/11/2018 D51.3 Other dietary vitamin B12 deficiency anemia Gauss, [facility] 12/11/2018 G82.50 Quadriplegia, unspecified Gauss, [facility] 12/11/2018 D64.9 Anemia, unspecified Gauss, [facility] 12/11/2018 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 Wiuss, [facility] 12/11/2018 F73 Profound intellectual disabilities [facility], [facility] 11/25/2018 F72 Severe intellectual disabilities Gauss, [facility] 11/25/2018 D50.9 Iron deficiency anemia, unspecified Gauss, [facility] 11/25/2018 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 Gauss, [facility] 11/25/2018 K44.0 Diaphragmatic hernia with obstruction [facility], [facility] 11/25/2018 G91.9 Hydrocephalus, unspecified Gauss, [facility] 11/25/2018 G80.8 Other cerebral palsy Gauss, [facility] 11/25/2018 G40.89 Other seizures [facility], [facility] 11/25/2018 D51.3 Other dietary vitamin B12 deficiency anemia [facility], [facility] 11/25/2018 G82.50 Quadriplegia, unspecified [facility], [facility] 11/25/2018 D64.9 Anemia, unspecified Gauss, [facility] 11/25/2018 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 Shankar Carlson Plan of Treatment Future Appointment(s):05/25/2019 8:00 am - Nurse at Main Fmrvul4606/01/2019 10: 30 am - Shankar Carlson at Main Julaat9212/11/2018 - RafaelPower leivaF72 Severe intellectual cjqrxpvzxuuzM42.9 Iron deficiency anemia, icrufeooexhC96.5 Congenital deformity of lnjliA01.0 Diaphragmatic hernia with ntmjqesavlrE37.9 Hydrocephalus, ivojuvmoiovM85.89 Other rhbdystrD26.3 Other dietary vitamin B12 deficiency ijqsftR47.50 Quadriplegia, psbbeiinaknY89.9 Anemia, bwjxmcdzahaR96.63 Congenital vwkiogyhiF25 Profound intellectual disabilities Functional Status Description No Information Available Mental Status Description No Information Available Referrals Refer to Dr Reason for Referral Status Appt Date [facility] [address] [place] [address] [phone]
[2019-05-16 14:37] VITALS: BP 125/86
--- NOTE | 2019-05-16 15:10 | UC ---
General HPI - HPI Summary HPI Summary: Pt is accompanied by residential caregiver. Pt states that she has cough, body aches and abdominal pain that began today. 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 Pt does not appear to be in acute distress at time of exam. Pt is may not be reliable historian. I have spoken with pt's aunt and guardian and with residential caregiver. Aunt reports that she is most concerned with pt's nasal cognestion and would like a nasal spray instead of PO medicine to help relieve this symptom - History of Current Complaint Chief Complaint: UCRespiratory Stated Complaint: CONGESTION,FEVER,RT EAR PAIN Time Seen by Provider: 05/16/19 14:43 Hx Obtained From: Patient, Family/Hanger Hx Last Menstrual Period: unknown Onset/Duration: Sudden Onset, Still Present Timing: Constant Onset Severity: Mild Current Severity: Moderate Pain Intensity: 7 Associated Signs & Symptoms: Positive: Cough - Allergy/Home Medications Allergies/Adverse Reactions: Allergies Allergy/AdvReac Type Severity Reaction Status Date / Time seasonal Allergy Unknown Uncoded 05/16/19 14:31 Reaction Details Home Medications: Home Medications Acetaminophen PED LIQ* [Tylenol PED LIQ UDC*] 320 mg PO Q6H PRN 05/16/19 [ History Confirmed 05/16/19] Albuterol 2.5MG/3ML (0.083%)* [Ventolin 2.5 MG/3 ML NEB.ANTONELLA*] 2.5 mg INH Q6H PRN 05/16/19 [History Confirmed 05/16/19] Bacitracin OINTMENT* 1 applic TOPICAL TID PRN 05/16/19 [History Confirmed ] Multivit-Minerals/Folic Acid [Centrum Multigummies] 2 each PO BID 05/16/19 [ History Confirmed 05/16/19] PHENobarbitaL [Phenobarbital] 100 mg PO 0800 05/16/19 [History Confirmed ] PHENobarbitaL [Phenobarbital] 120 mg PO 1900 05/16/19 [History Confirmed ] Phenylephrine HCl [Nasal Tyrone] 1 spray BOTH NARES QID PRN 05/16/19 [History Confirmed 05/16/19] PMH/Surg Hx/FS Hx/Imm Hx - Additional Past Medical History Additional PMH: Pt wears brace for truncal support. is wheel chair dependent, incontinent of urine and stool, and lives in residential Previously Healthy: Yes - Surgical History Surgical History: Yes Surgery Procedure, Year, and Place: crainial shunts x2 - Family History Known Family History: Positive: Hypertension - Social History Occupation: Disabled Lives: Snf Alcohol Use: None Substance Use Type: None Smoking Status (MU): Never Smoked Tobacco Have You Smoked in the Last Year: No - Immunization History Most Recent Influenza Vaccination: no Vaccination Up to Date: Yes Review of Systems All Other Systems Reviewed And Are Negative: Yes Constitutional: Positive: Negative Skin: Positive: Rash - on trunk, related to brace, per aunt. ENT: Positive: Negative Respiratory: Positive: Cough Cardiovascular: Positive: Negative Gastrointestinal: Positive: Abdominal Pain Genitourinary: Positive: Negative Motor: Positive: Negative Neurovascular: Positive: Negative Musculoskeletal: Positive: Myalgia - pt states "my body hurts" Neurological: Positive: Negative Psychological: Positive: Negative Is Patient Immunocompromised?: No Physical Exam Triage Information Reviewed: Yes Appearance: Ill-Appearing Vital Signs: Initial Vital Signs Temp 98.2 F 05/16/19 14:32 Pulse 112 05/16/19 14:32 Resp 20 05/16/19 14:32 BP 125/86 05/16/19 14:32 Pulse Ox 100 05/16/19 14:32 Vital Signs Reviewed: Yes Eye Exam: Normal Eyes: Positive: Other: - scleritis ENT: Positive: Nasal congestion Respiratory: Positive: Normal breath sounds, No respiratory distress Cardiovascular: Positive: Tachycardia Abdomen Description: Positive: Other: - verbal c/o pain at RLQ and umbilicus. If pt is not prompted abotu pain, pt does not respond with painful reaction to abdominal exam Musculoskeletal Exam: Other - at baseline, uses wheelchair Neurological Exam: Other - at baseline Psychological Exam: Normal Skin: Positive: Rashes - scattered, flat erythematous areas on trunk Course/Dx - Differential Dx - Multi-Symptom Differential Diagnoses: Other - viral syndrome - Diagnoses Provider Diagnosis: Nasal congestion, Abdominal pain Discharge ED - Sign-Out/Discharge Documenting (check all that apply): Patient Departure All imaging exams completed and their final reports reviewed: No Studies - Discharge Plan Condition: Stable Disposition: HOME Prescriptions: Oxymetazoline 0.05% NASAL SPR* [Afrin 0.05% NASAL SPRAY*] 1 spray NASAL Q12H #1 btl Patient Education Materials: Viral Syndrome (ED), Acute Abdominal Pain (ED) Referrals: Shankar Dickey MD [Primary Care Provider] - If Needed Additional Instructions: Please follow up with your PCP as need. If your symptoms do not improve please seek care at the closes emergency room as soon as possible. - Billing Disposition and Condition Condition: STABLE Disposition: Home
[2019-05-16 15:25] LABS: Influenza A Molecular NEGATIVE (Negative); Influenza B Molecular NEGATIVE (Negative)
== END 2019-05-16 15:36 | disposition home or self-care (01) ==
LOC: UCCORT 13:20
DX: R09.81 Nasal congestion (principal); R10.9 Unspecified abdominal pain; M79.10 Myalgia, unspecified site; R05 Cough; R21 Rash and other nonspecific skin eruption; H15.099 Other scleritis, unspecified eye; R00.0 Tachycardia, unspecified; Z91.09 Other allergy status, other than to drugs and biological substances; Z99.3 Dependence on wheelchair
CPT/HCPCS: 99212; G0463

== ENCOUNTER 2023-06-13 13:14 | Observation (INO) ==
[2023-06-13] MEDS ORDERED: Albuterol 2.5mg/3 ml (0.083%) NEB.SOLN INH ONE ×2 (14:04→16:03)
[2023-06-13] MEDS ORDERED: Dexamethasone IV 4 MG/ML VIAL 1 ml VIAL IV SLOW PU ONE (14:05)
[2023-06-13 14:22] LABS: Hematocrit 43.9 % (35-45); Hemoglobin 14.9 g/dL (11.5-14.3); Mean Corpuscular Hemoglobin 34.5 pg (27-33); Mean Corpuscular Volume 101.6 fL (80-97); Mean Platelet Volume 7.3 fL (7.5-11.2); Platelet Count 319 10^3/uL (150-450); Red Blood Count 4.32 10^6/uL (3.63-4.92); Red Cell Distribution Width 13.3 % (12-17); White Blood Count 16.2 10^3/uL (3.8-11.8)
[2023-06-13] MEDS ORDERED: cefTRIAXone VIAL 1,000 MG VIAL IM ONE (14:42)
[2023-06-13 14:52] LABS: ABS Lymphocytes 0.8 10^3/uL (1.0-4.8); ABS Monocytes 1.6 10^3/uL (0.0-0.9); ABS Neutrophils 13.8 10^3/uL (1.5-7.6); ABS Nucleated RBC 0.01 10^3/ul; Albumin 4.4 g/dL (3.2-5.2); Albumin/Globulin Ratio 1.2 (1-3); C Reactive Protein 352.19 mg/L (<8.01); Calcium 9.3 mg/dL (8.6-10.3); Creatinine, Serum 0.42 mg/dL (0.51-0.95); Globulin 3.8 g/dL (2-4); Nucleated Red Blood Cells % 0.1 %/100WBC (0.0-0.8); Potassium 3.7 mmol/L (3.5-5.0); RBC Morphology Normal (Normal); Total Bilirubin 0.6 mg/dL (0.2-1.0); Total Protein 8.2 g/dL (6.4-8.9); eGFR CKD-EPI 127.5 (>60)
[2023-06-13] MEDS ORDERED: cefTRIAXone 1 gm/50 mL D5W 1 GM/50 ML BAG IV ONE (15:34)
[2023-06-13] MEDS ORDERED: LACTATED RINGERS IV ONE (15:36)
[2023-06-13] MEDS ORDERED: NS 0.9% 500 ml BAG 500 ML IV ONE (16:02)
[2023-06-13] MEDS ORDERED: Albuterol 2.5mg/3 ml (0.083%) NEB.SOLN INH PRN (17:34)
[2023-06-13] MEDS ORDERED: Polyethylene Glycol 3350 17 GM PACKET PO PRN (17:34)
[2023-06-13] MEDS ORDERED: Ondansetron ODT 4 mg TAB 4 MG TAB PO PRN (17:44)
[2023-06-13] MEDS ORDERED: Lactated Ringers 1000 ml BAG 1,000 ML IV ONE (18:19)
[2023-06-13 18:22] LABS: Urine Appearance Cloudy; Urine Bilirubin Negative (Negative); Urine Blood Negative (Negative); Urine Color Amber; Urine Glucose 1+(50 mg/dL) (Negative); Urine Ketones 2+ (Negative); Urine Nitrite Negative (Negative); Urine Protein 2+(100 mg/dL) (Negative); Urine Specific Gravity 1.029 (1.002-1.030); Urine Urobilinogen Positive (Negative)
[2023-06-13] MEDS: PHENobarbital LIQ 30 MG/7.5 ML UDC PO SCH (18:34)
[2023-06-13 18:39] LABS: Urine Bacteria Absent (Absent); Urine Red Blood Cell 1+(3-5/hpf) (Absent); Urine Renal Epithelial Cells Present (Absent); Urine Squamous Epithelial Cell Present (Absent); Urine White Blood Cell Trace(0-5/hpf) (Absent)
[2023-06-14 08:50] LABS: Hematocrit 38.5 % (35-45); Hemoglobin 12.8 g/dL (11.5-14.3); Mean Corpuscular Hemoglobin 34.2 pg (27-33); Mean Corpuscular Hgb Conc 33.3 g/dL (31-36); Mean Corpuscular Volume 102.7 fL (80-97); Mean Platelet Volume 7.5 fL (7.5-11.2); Platelet Count 265 10^3/uL (150-450); Red Blood Count 3.75 10^6/uL (3.63-4.92); Red Cell Distribution Width 13.2 % (12-17); White Blood Count 12.5 10^3/uL (3.8-11.8)
[2023-06-14] MEDS: PHENobarbital LIQ 30 MG/7.5 ML UDC PO SCH (08:50)
[2023-06-14 09:17] LABS: C Reactive Protein 284.81 mg/L (<8.01); Calcium 8.5 mg/dL (8.6-10.3); Creatinine, Serum 0.3 mg/dL (0.51-0.95); Magnesium 1.9 mg/dL (1.9-2.7); Potassium 3.4 mmol/L (3.5-5.0); eGFR CKD-EPI 138.3 (>60)
[2023-06-14] MEDS ORDERED: KCL 20 MEQ/100 ML IVPREMIX 20 MEQ/100 ML BAG IV ONE (11:47)
[2023-06-14] MEDS ORDERED: Potassium Chlor 20 meq TAB.ER PO ONE (12:12)
[2023-06-14 13:49] VITALS: BP 105/70
[2023-06-14] MEDS ORDERED: Azithromycin 500 mg/250 ml NS 500 MG/250 ML BAG IVPB SCH (15:00)
[2023-06-14] MEDS ORDERED: cefTRIAXone 1 gm/50 mL D5W 1 GM/50 ML BAG IV SCH (16:00)
[2023-06-14] MEDS ORDERED: PHENobarbital LIQ 30 MG/7.5 ML UDC PO SCH (21:00)
== END 2023-06-14 14:20 | disposition home or self-care (01) ==
LOC: ED 13:14 → EDHOLD 16:11 → INTOOBSV 16:11 → MEDTELE 21:08
PROVIDERS: ADMIT Internal Medicine; ATTEND Internal Medicine

== ENCOUNTER 2023-11-15 14:40 | Inpatient (IN) ==
[2023-11-15] MEDS: Lactated Ringers 1000 ml BAG 1,000 ML IV ONE (15:50)
[2023-11-15] MEDS: Piperacillin/Tazobac 3.375 BAG 3.375 GM/100 ML BAG IV ONE (15:58)
[2023-11-15] MEDS: Ondansetron 4 mg VIAL 2 MG/ML 2 ml VIAL IV ONE (15:59)
[2023-11-15 16:00] LABS: ABS Basophils 0.1 10^3/uL (0.0-0.1); ABS Eosinophils 0.1 10^3/uL (0.0-0.5); ABS Monocytes 0.6 10^3/uL (0.0-0.9); ABS Neutrophils 4.9 10^3/uL (1.5-7.6); ABS Nucleated RBC 0.01 10^3/ul; Eosinophil % 1.7 %; Hematocrit 40.5 % (35-45); Hemoglobin 13.5 g/dL (11.5-14.3); Lymphocyte % 15.4 %; Mean Corpuscular Hemoglobin 34.5 pg (27-33); Mean Corpuscular Hgb Conc 33.4 g/dL (31-36); Mean Corpuscular Volume 103.5 fL (80-97); Mean Platelet Volume 6.8 fL (7.5-11.2); Nucleated Red Blood Cells % 0.1 %/100WBC (0.0-0.8); Platelet Count 370 10^3/uL (150-450); Red Blood Count 3.92 10^6/uL (3.63-4.92); Red Cell Distribution Width 14.3 % (12-17); White Blood Count 6.7 10^3/uL (3.8-11.8)
[2023-11-15] MEDS: Dexamethasone IV 4 MG/ML VIAL 1 ml VIAL IV SLOW PU ONE (16:57)
[2023-11-15 17:12] LABS: Albumin 4.3 g/dL (3.2-5.2); Albumin/Globulin Ratio 1.5 (1-3); C Reactive Protein 5.47 mg/L (<8.01); Calcium 9.1 mg/dL (8.6-10.3); Creatinine, Serum 0.39 mg/dL (0.51-0.95); Globulin 2.9 g/dL (2-4); Potassium 3.7 mmol/L (3.5-5.0); Total Bilirubin 0.2 mg/dL (0.2-1.0); Total Protein 7.2 g/dL (6.4-8.9); eGFR CKD-EPI 129.8 (>60)
[2023-11-15 17:30] LABS: High Sensitivity Troponin 1 Hr 4 pg/mL (<15)
[2023-11-15] MEDS: Iodixanol (CONTRAST) 320 MG/ML 100 ML SDV IV ONE ×2 (17:41→17:43)
[2023-11-15] MEDS: Vancomycin 500 MG in NS 0.9% 250 ml 250 ML IVPB ONE (18:36)
[2023-11-15 19:07] LABS: Urine Appearance Clear; Urine Bacteria 2+ /HPF (Absent); Urine Bilirubin Negative (Negative); Urine Blood Negative (Negative); Urine Color Light-Yellow; Urine Glucose 1+ (>=70 mg/dL) (Negative); Urine Ketones Negative (Negative); Urine Nitrite Negative (Negative); Urine Protein 1+ (>=30 mg/dL) (Negative); Urine Red Blood Cell 1+(3-5/hpf) /HPF (0-Trace); Urine Specific Gravity >1.050 (1.002-1.030); Urine Squamous Epithelial Cell Present /HPF (Absent); Urine Urobilinogen Negative (Negative); Urine White Blood Cell Trace(0-5/hpf) /HPF (0-Trace); Urine pH 6.5 (5.0-8.0)
[2023-11-15] MEDS ORDERED: Ondansetron 4 mg VIAL 2 MG/ML 2 ml VIAL IV PRN (19:43)
[2023-11-15] MEDS ORDERED: Saline NASAL SPRAY 0.65% BTL BOTH NARES PRN (19:59)
[2023-11-15] MEDS ORDERED: Polyethylene Glycol 3350 17 GM PACKET PO PRN (19:59)
[2023-11-15] MEDS ORDERED: Albuterol 2.5mg/3 ml (0.083%) NEB.SOLN INH PRN (19:59)
[2023-11-15] MEDS: PHENobarbital LIQ 30 MG/7.5 ML UDC PO SCH (21:22)
[2023-11-15] MEDS: Polyethylene Glycol 3350 17 GM PACKET PO SCH (23:17)
[2023-11-16] MEDS: Simethicone SUSP ORALSYR 66.66 MG/ML PO ONE (06:23)
[2023-11-16 08:18] LABS: Hematocrit 38.6 % (35-45); Hemoglobin 11.1 g/dL (11.5-14.3); Mean Corpuscular Hemoglobin 32.1 pg (27-33); Mean Corpuscular Hgb Conc 28.7 g/dL (31-36); Mean Corpuscular Volume 111.7 fL (80-97); Red Blood Count 3.46 10^6/uL (3.63-4.92); Red Cell Distribution Width 15.9 % (12-17); White Blood Count 4.7 10^3/uL (3.8-11.8)
[2023-11-16 08:39] LABS: Creatinine, Serum 0.34 mg/dL (0.51-0.95); Potassium 3.9 mmol/L (3.5-5.0); eGFR CKD-EPI 134.2 (>60)
[2023-11-16 09:03] LABS: ABS Lymphocytes 1.3 10^3/uL (1.0-4.8); ABS Monocytes 0.6 10^3/uL (0.0-0.9); ABS Neutrophils 2.7 10^3/uL (1.5-7.6); ABS Nucleated RBC 0.03 10^3/ul; Eosinophil % 0.7 %; Lymphocyte % 28.7 %; Platelet Count Platelets clumped. 10^3/uL (150-450)
[2023-11-16 09:04] LABS: Nucleated Red Blood Cells % 0.7 %/100WBC (0.0-0.8)
[2023-11-16] MEDS: PHENobarbital LIQ 30 MG/7.5 ML UDC PO SCH (09:20)
[2023-11-16] MEDS ORDERED: Magnesium Hydroxide LIQ 30 ML UDC PO PRN (10:46)
[2023-11-16] MEDS: Lactated Ringers 1000 ml BAG 1,000 ML IV SCH (12:27)
[2023-11-16] MEDS: Senna TAB 8.6 mg TAB PO SCH (20:05)
[2023-11-16] MEDS: Enoxaparin 30 MG/0.3 ML SYR SUBCUT ONE (22:49)
[2023-11-17 11:12] LABS: ABS Basophils 0.1 10^3/uL (0.0-0.1); ABS Eosinophils 0.1 10^3/uL (0.0-0.5); ABS Lymphocytes 0.7 10^3/uL (1.0-4.8); ABS Monocytes 0.3 10^3/uL (0.0-0.9); ABS Neutrophils 4.8 10^3/uL (1.5-7.6); Hematocrit 42.4 % (35-45); Hemoglobin 14.5 g/dL (11.5-14.3); Lymphocyte % 11.1 %; Mean Corpuscular Hemoglobin 35.3 pg (27-33); Mean Corpuscular Hgb Conc 34.1 g/dL (31-36); Mean Corpuscular Volume 103.3 fL (80-97); Mean Platelet Volume 6.7 fL (7.5-11.2); Nucleated Red Blood Cells % 0.1 %/100WBC (0.0-0.8); Platelet Count 315 10^3/uL (150-450); Red Cell Distribution Width 14.1 % (12-17); White Blood Count 5.9 10^3/uL (3.8-11.8)
[2023-11-17 11:53] LABS: Potassium, Whole Blood 3.6 mmol/L (3.4-4.5)
[2023-11-17 13:45] LABS: Calcium 9.1 mg/dL (8.6-10.3); Creatinine, Serum 0.32 mg/dL (0.51-0.95); Potassium 3.9 mmol/L (3.5-5.0); eGFR CKD-EPI 136.2 (>60)
[2023-11-17 14:01] VITALS: BP 98/77
== END 2023-11-17 15:30 | disposition home or self-care (01) | DRG 206 ==
LOC: EDHOLD 14:40 → ED 14:40 → MEDTELE 21:16
PROVIDERS: ADMIT Student in an Organized Health Care Education/Training Program; ATTEND Internal Medicine